=== PATIENT | male | born 1935 | race Caucasian/White ===

== ENCOUNTER 2016-12-08 11:02 | Emergency (ER) | payer OTHER ==
[~2016-12-08] VITALS: Ht 182.9 cm; Wt 95.5 kg
[2016-12-08 11:16] VITALS: TEMP 36.6; Ht 182.9 cm; Wt 95.5 kg
[2016-12-08] MEDS ORDERED: FINA5TAB4 PO (11:53)
[2016-12-08] MEDS ORDERED: CARV6.252 PO (11:53)
[2016-12-08] MEDS ORDERED: SIMV10TA2 PO (11:53)
[2016-12-08] MEDS ORDERED: TORS5TAB10 PO (11:53)
[2016-12-08] MEDS ORDERED: NVLGI/PEN SQ (11:53)
[2016-12-08] MEDS ORDERED: INSU70IN2 SC ×2 (11:53)
[2016-12-08] MEDS ORDERED: GLIM2TAB PO (11:53)
[2016-12-08] MEDS ORDERED: PANT40TA PO (11:53)
[2016-12-08 12:10] VITALS: O2SAT 97
--- NOTE | 2016-12-08 12:34 | DIAGNOSTIC IMAGING REPORT ---
HEAD CT NONCONTRAST CT DOSE: 614.27 mGy.cm HISTORY: Mental status change lightheadedness/near syncope TECHNIQUE: Multiaxial CT images of the head were performed without the use of intravenous contrast. Comparison: None. Findings: The paranasal sinuses and mastoid air cells are clear. The calvarium and skull base are intact. The ventricles and sulci are within normal limits. There is no mass, hematoma, midline shift, or acute infarct. Impression: No acute intracranial abnormality. Electronically signed by: Ang Goode M.D. 12/08/2016 12:33 PM Dictated Date/Time: 12/08/2016 12:30 PM
[2016-12-08 12:51] LABS: INR 1.3 (0.9-1.1); PARTIAL THROMBOPLASTIN RATIO 1.1; PROTHROMBIN TIME (PATIENT) 13.6 SECONDS (9.0-12.0)
[2016-12-08 13:00] LABS: BUN/CREATININE RATIO 13.2 (10-20); CALCIUM 8.3 mg/dl (8.5-10.1); POTASSIUM 3.4 mmol/L (3.5-5.1)
[2016-12-08 13:04] LABS: HEMATOCRIT 30.2 % (42-52); MEAN CELL VOLUME 98.1 fL (80-100); MEAN CORPUSCULAR HEMOGLOBIN 34.1 pg (25-34); MEAN CORPUSCULAR HGB CONC 34.8 g/dl (32-36); MEAN PLATELET VOLUME 9.8 fL (7.4-10.4); PLATELET COUNT 76 K/uL (130-400); RED BLOOD COUNT 3.08 M/uL (4.7-6.1); WHITE BLOOD COUNT 9.65 K/uL (4.8-10.8)
[2016-12-08 13:06] LABS: BASO % 0.4 %; BASO ABS # 0.04 K/uL (0-0.2); COMPLETE YES; EOS % 4.7 %; IG% 0.3 %; LYMPH % 17.6 %; MONO % 9.4 %; NEUT % 67.6 %
[2016-12-08 13:10] LABS: PLT ESTIMATE DECREASED
[2016-12-08 13:15] VITALS: BP 162/82; PULSE 70; O2SAT 100
--- NOTE | 2016-12-08 14:15 | EMERGENCY ROOM VISIT NOTE ---
History First contact with patient: 11:49 Chief Complaint: ILLNESS Stated Complaint: DIABETIC SYMPTOMS History of Present Illness The patient is a 81 year old male who presents to the Emergency Room from his PCP with complaints of lightheadedness and near syncope. He was at his PCPs office and he felt very lightheaded going back the room and fell like he was going to pass out. This is been going on for the last 2-3 years that he has had similar episodes. When he was back in the exam room the doctor thought that he was "out of it intermittently ". He did not completely pass out. She thought it might be due to his blood sugar so they gave him some packets of sugar to place on his tongue and some juice. They then gave him a shot of glucogon . He then felt much better. They took his blood sugar as he was leaving and it was 128. The patient on arrival to the emergency room told the staff that he did not want anything done and he wanted to go home. I spoke with the patient and he is now in agreement as long as he gets here in time to go to his 2:00 appointment and [place]. The patient denies any chest pain or shortness of breath. The patient denies any nausea vomiting or visual changes. Review of Systems 10 system review was performed and was negative unless stated otherwise history of present illness. Past Medical/Surgical History Diabetes, hypertension, kidney disease, peptic ulcer disease, stents placed for aneurysms Social History Smoking Status: Unknown if Ever Smoked Marital Status: Housing Status: lives with family Occupation Status: retired Current/Historical Medications Scheduled Carvedilol (Coreg), 12.5 MG PO QAM Finasteride (Proscar), 5 MG PO DAILY Glimepiride (Amaryl), 2 MG PO DAILY Insulin Aspart (Novolog Flexpen), 4 UNITS SQ QAM Insulin Isophan/Regular (Novolin 70/30), 24 UNITS SC QDB Insulin Isophan/Regular (Novolin 70/30), 14 UNITS SC QDD Pantoprazole (Protonix), 40 MG PO DAILY Simvastatin (Zocor), 10 MG PO HS Torsemide (Torsemide), 20 MG PO DAILY Allergies Uncoded Allergies: SULFA (Allergy, Unknown, unknown, 12/08/16) Physical Exam Vital Signs Date Time Temp Pulse Resp B/P Pulse Ox O2 Delivery O2 Flow Rate FiO2 12/08/16 13:15 70 16 162/82 100 12/08/16 12:10 97 Room Air 12/08/16 11:16 36.6 58 20 133/76 97 Room Air Physical Exam GENERAL: 81-year-old white male appears in no acute distress. MENTAL Status: Alert and oriented 3. The patient is not happy to be in the emergency room. EYES: PERRLA. EARS: Canals clear. TMs without fluid level noted. NECK: Supple, no lymphadenopathy noted. No carotid bruits noted. LUNGS: Clear auscultation without wheezes rales or rhonchi. CARDIAC: Regular rate and rhythm without murmur. Pulses is full and equal throughout. NEURO:Cranial nerves two through 12 intact. Cerebellar function intact with [id number]. Fine motor intact with alternating finger motions. Medical Decision & Procedures ER Provider Diagnostic Interpretation: HEAD CT NONCONTRAST CT DOSE: 614.27 mGy.cm HISTORY: Mental status change lightheadedness/near syncope TECHNIQUE: Multiaxial CT images of the head were performed without the use of intravenous contrast. Comparison: None. Findings: The paranasal sinuses and mastoid air cells are clear. The calvarium and skull base are intact. The ventricles and sulci are within normal limits. There is no mass, hematoma, midline shift, or acute infarct. Impression: No acute intracranial abnormality. Electronically signed by: Ang Goode M.D. 12/08/2016 12:33 PM Dictated Date/Time: 12/08/2016 12:30 PM Laboratory Results 12/08/16 12:20 Red Blood Count 3.08, Mean Corpuscular Volume 98.1, Mean Corpuscular Hemoglobin 34.1, Mean Corpuscular Hemoglobin Concent 34.8, Mean Platelet Volume 9.8, Neutrophils (%) (Auto) 67.6, Lymphocytes (%) (Auto) 17.6, Monocytes (%) (Auto) 9.4, Eosinophils (%) (Auto) 4.7, Basophils (%) (Auto) 0.4, Neutrophils # (Auto) 6.52, Lymphocytes # (Auto) 1.70, Monocytes # (Auto) 0.91, Eosinophils # (Auto) 0.45, Basophils # (Auto) 0.04 12/08/16 12:20 Test 12/08/16 12:20 White Blood Count 9.65 K/uL (4.8-10.8) Red Blood Count 3.08 M/uL (4.7-6.1) Hemoglobin 10.5 g/dL (14.0-18.0) Hematocrit 30.2 % (42-52) Mean Corpuscular Volume 98.1 fL (80-100) Mean Corpuscular Hemoglobin 34.1 pg (25-34) Mean Corpuscular Hemoglobin Concent 34.8 g/dl (32-36) Platelet Count 76 K/uL (130-400) Mean Platelet Volume 9.8 fL (7.4-10.4) Neutrophils (%) (Auto) 67.6 % Lymphocytes (%) (Auto) 17.6 % Monocytes (%) (Auto) 9.4 % Eosinophils (%) (Auto) 4.7 % Basophils (%) (Auto) 0.4 % Neutrophils # (Auto) 6.52 K/uL (1.4-6.5) Lymphocytes # (Auto) 1.70 K/uL (1.2-3.4) Monocytes # (Auto) 0.91 K/uL (0.11-0.59) Eosinophils # (Auto) 0.45 K/uL (0-0.5) Basophils # (Auto) 0.04 K/uL (0-0.2) RDW Standard Deviation 48.6 fL (36.4-46.3) RDW Coefficient of Variation 13.7 % (11.5-14.5) Immature Granulocyte % (Auto) 0.3 % Immature Granulocyte # (Auto) 0.03 K/uL (0.00-0.02) Platelet Estimate DECREASED Prothrombin Time 13.6 SECONDS (9.0-12.0) Prothromb Time International Ratio 1.3 (0.9-1.1) Activated Partial Thromboplast Time 27.5 SECONDS (21.0-31.0) Partial Thromboplastin Ratio 1.1 Anion Gap 10.0 mmol/L (3-11) Est Creatinine Clear Calc Drug Dose 23.5 ml/min Estimated GFR () 21.7 Estimated GFR (Non- 18.8 BUN/Creatinine Ratio 13.2 (10-20) Calcium Level 8.3 mg/dl (8.5-10.1) ED Course The patient was evaluated. IV access was obtained. Coags, CBC and differential , renal profile was ordered. EKG was ordered and interpreted by myself and Dr. Bustamante as above. CT of the head was ordered and interpreted by the radiologist as above without any acute findings. Labs are reviewed. The patient's BUN was 40 and creatinine was 3.0. Glucose was 150. The patient did not have any labs performed here in the past therefore we had the patient sign a consent to get his most recent labs through [employer]. His prior BUN was 38 and his creatinine was 2.7 .The patient was independently evaluated by Dr. Gan who agrees with treatment plan. The patient's blood sugar was rechecked and it was 95. He was given 2 glasses of orange juice before leaving. The patient was discharged home in stable condition. Medical Decision Differential diagnosis include hypoglycemia, stroke, TIA, cardiac arrhythmia Impression Primary Impression: Hypoglycemia Additional Impression: Renal failure Departure Information Dispostion Home / Self-Care Condition GOOD Referrals No Doctor, Assigned (PCP) Forms HOME CARE DOCUMENTATION FORM, IMPORTANT VISIT INFORMATION, WORK / SCHOOL INSTRUCTIONS Patient Instructions My [facility] [employer] Additional Instructions Observe your blood sugars closely. Continue all medications as prescribed. Follow-up with your family doctor on Monday for reevaluation. If symptoms persist or worsen in the interim, return to ER. Problem Qualifiers
--- NOTE | 2016-12-08 15:21 | EMERGENCY ROOM VISIT NOTE ---
ED Visit Note First contact with patient: 11:49 I have personally evaluated this patient examined her and reviewed the pertinent labs and data. I have discussed the case with Kaylyn Goode, the physician medical assistant supervisor and agree with the plan. Please refer to the PA note Patient comes in after getting hypoglycemic. He is better after raising his blood suga.r he had a blood sugar over 100. His EKG and the rest of his blood work was unremarkable with the exception of baseline renal insufficiency with a creatinine of 3. This is the same ballpark as his previous labs which week holdup. The patient has an appointment with his doctor and is anxious to go. Checked a blood sugar prior to D/c and it was in the mid 90s he was given additional juice and was told to check his blood sugar frequently.
== END 2016-12-08 14:23 | disposition home or self-care (01) ==
LOC: EDBD 11:02 → C.EDC 11:03
DX: E16.2 Hypoglycemia, unspecified (principal); N19 Unspecified kidney failure; E11.9 Type 2 diabetes mellitus without complications; I10 Essential (primary) hypertension; N18.9 Chronic kidney disease, unspecified; K27.9 Peptic ulcer, site unspecified, unspecified as acute or chronic, without hemorrhage or perforation